=== PATIENT | male | born 1990 | race Caucasian/White ===

== ENCOUNTER 2018-01-26 11:18 | Emergency (ER) | payer SELFPAY ==
[~2018-01-26] VITALS: Ht 185.4 cm; Wt 93.2 kg
[2018-01-26] MEDS ORDERED: MULT-1285 PEG (11:20)
[2018-01-26] MEDS ORDERED: IBUPROFEN 600 MG TABLET PO ONE (12:00)
[2018-01-26] MEDS ORDERED: CYCLOBENZAPRINE HCL 10 MG TABLET PO ONE (12:00)
[2018-01-26 13:14] VITALS: BP 137/76
== END 2018-01-26 13:19 | disposition home or self-care (01) ==
LOC: EMS 11:20
DX: M54.41 Lumbago with sciatica, right side (principal); Z79.899 Other long term (current) drug therapy